=== PATIENT | male | born 2000 | race Caucasian/White ===

== ENCOUNTER 2021-11-22 14:56 | Emergency (ER) | payer OTHER ==
[2021-11-22 15:02] VITALS: BP 130/59; PULSE 72; TEMP 99; BMI 24.7
[2021-11-22] MEDS ORDERED: KETOROLAC TROMETHAMINE 15 MG/ML VIAL IM ONE (16:24)
[2021-11-22] MEDS ORDERED: LIDOCAINE 5% TOPICAL PATCH TP ONE (16:25)
[2021-11-22] MEDS ORDERED: KETOROLAC TROMETHAMINE 15 MG/ML VIAL ONE (16:48)
[2021-11-22] MEDS ORDERED: LIDOCAINE 5% TOPICAL PATCH ONE (16:48)
[2021-11-22] MEDS ORDERED: LIDOCAINE PATCH REMOVAL MC SCH (22:00)
== END 2021-11-22 16:59 | disposition home or self-care (01) ==
LOC: JERFT 14:56
PROC: 3E023GC Introduction of Other Therapeutic Substance into Muscle, Percutaneous Approach (ICD-10-PCS; principal; 2021-11-22)
DX: M62.830 Muscle spasm of back (principal)
CPT/HCPCS: 96372; 99284-25